=== PATIENT | male | born 1970 | race Caucasian/White ===

== ENCOUNTER 2017-05-14 18:03 | Emergency (ER) | payer SELFPAY ==
[~2017-05-14] VITALS: Ht 170.2 cm; Wt 76.8 kg
[2017-05-14 18:24] VITALS: BP 152/85
--- NOTE | 2017-05-14 18:28 | NUR ---
PT AMBULATES BACK TO THE LOBBY
--- NOTE | 2017-05-14 22:12 | NUR ---
PATIENT TO CHAIR C
--- NOTE | 2017-05-14 22:20 | NUR ---
47Y/M PT. PRESENST TO ED WITH C/O COUGH, CP WHEN COUHING, SORE THROAT X 10 DAYS; TOOK DAYQUIL, TERAFLU, EAR DROPS, EYE DROPS, NOSE SPRAY WITH NO RELIEF. AAO X4, AMBULATORY WITH STEADY GAIT. RESPIRTAIONS RA, EVEN AND UNLABORED. BL LUNG CLEAR, C/O COUGH. NO PAIN AT THIS TIME. VSS, ER MADE AWARE OF PT. STATUS.
--- NOTE | 2017-05-14 22:36 | NUR ---
Patient discharged with v/s stable. Written and verbal after care instructions given and explained. Patient alert, oriented and verbalized understanding of instructions. Ambulatory with steady gait. All questions addressed prior to discharge. ID band removed. Patient advised to follow up with PMD. Rx of AZITHROMYCIN 250 MG, CODEINE/PROMETHAZINE 10/6.25MG/5ML given. Patient educated on indication of medication including possible reaction and side effects. Opportunity to ask questions provided and answered.
[2017-05-14 22:54] VITALS: BP 123/73
== END 2017-05-14 22:36 | disposition home or self-care (01) ==
LOC: MED 18:03
DX: J20.9 Acute bronchitis, unspecified (principal); R03.0 Elevated blood-pressure reading, without diagnosis of hypertension
CPT/HCPCS: 71045; 99283